=== PATIENT | female | born 1995 | race Caucasian/White ===

== ENCOUNTER 2020-01-23 11:32 | Emergency (ER) | payer SELFPAY ==
[~2020-01-23] VITALS: Ht 154.9 cm; Wt 71.2 kg
[2020-01-23 11:36] VITALS: BP 132/69
[2020-01-23] MEDS ORDERED: ACETAMINOPHEN 325 MG TAB PO ONE (12:20)
[2020-01-23] MEDS ORDERED: IBUPROFEN 600 MG TAB PO ONE (12:20)
[2020-01-23 12:58] LABS: BASOPHILS # (AUTO) 0.1 K/uL (0.00-0.22); BASOPHILS % (AUTO) 0.5 % (0.0-2.0); EOSINOPHILS # (AUTO) 0.1 K/uL (0-0.4); EOSINOPHILS % (AUTO) 0.9 % (0.0-4.0); HEMATOCRIT 34.8 % (36-48); HEMOGLOBIN 11.7 g/dL (12.0-16.0); LYMPHOCYTES % (AUTO) 18.7 % (20.5-51.1); MEAN CORPUSCULAR HEMOGLOBIN 28 pg (27-31); MEAN CORPUSCULAR HGB CONC 34 g/dL (33-37); MEAN CORPUSCULAR VOLUME 84.3 fL (80-94); MONOCYTES # (AUTO) 0.6 K/uL (0.8-1.0); MONOCYTES % (AUTO) 5.6 % (1.7-9.3); NEUTROPHILS # (AUTO) 8.1 K/uL (1.8-7.7); NEUTROPHILS % (AUTO) 74.3 % (42.2-75.2); PLATELET COUNT (AUTO) 292 K/uL (140-450); RED BLOOD CELL COUNT(AUTO) 4.13 MIL/uL (4.20-5.40); RED CELL DISTRIBUTION WIDTH 13.4 % (11.6-13.7); WHITE BLOOD COUNT (AUTO) 10.9 K/uL (4.8-10.8)
[2020-01-23 13:23] LABS: ALBUMIN 3.3 g/dL (3.4-5.0); ANION GAP 14.4 (8-16); CARBON DIOXIDE 25.5 mmol/L (21-32); CREATININE 0.8 mg/dL (0.6-1.3); POTASSIUM 3.9 mmol/L (3.5-5.1); TOTAL BILIRUBIN 0.4 mg/dL (0.0-1.0)
[2020-01-23 13:25] LABS: PROTHROMBIN TIME 9.8 secs (10.8-13.4)
[2020-01-23 16:07] VITALS: BP 99/66
[2020-01-23 16:15] LABS: APPEARANCE,URINE HAZY (CLEAR); BILIRUBIN,URINE NEGATIVE (NEGATIVE); BLOOD, URINE 3+ (NEGATIVE); COLOR,URINE YELLOW (YELLOW); LEUKOCYTE ESTERASE ,URINE 1+ (NEGATIVE); NITRITE, URINE NEGATIVE (NEGATIVE); PH,URINE 7.5 (5.0-9.0); UGLUCOSE NEGATIVE (NEGATIVE)
== END 2020-01-23 16:09 | disposition home or self-care (01) ==
LOC: MED 11:32
DX: N94.6 Dysmenorrhea, unspecified (principal)
CPT/HCPCS: 36415; 76830; 80053; 81001; 81025; 85025; 85610; 85730; 87086; 93976; 99284; Q0092

== ENCOUNTER 2022-11-09 01:45 | Emergency (ER) | payer OTHER ==
[~2022-11-09] VITALS: Ht 154.9 cm; Wt 70.8 kg
[2022-11-09 01:45] VITALS: BP 141/97
--- NOTE | 2022-11-09 01:45 | NUR ---
TO [facility] , VINITA BARBOZA PS FOR PREBOOK
--- NOTE | 2022-11-09 02:09 | NUR ---
PATIENT BIB [facility] [employer]. PATIENT EXAMINED BY . PATIENT MEDICALLY CLEARED AND RELEASED IN CUSTODY IN STABLE CONDITION. ORIGINAL PRE-BOOK FORM GIVEN TO OFFICER EMILY, #[id number].
== END 2022-11-09 02:09 | disposition home or self-care (01) ==
LOC: MED 01:45
DX: Z04.1 Encounter for examination and observation following transport accident (principal); J45.909 Unspecified asthma, uncomplicated; Z02.89 Encounter for other administrative examinations
CPT/HCPCS: 99283

== ENCOUNTER 2023-11-20 18:35 | Emergency (ER) | payer MEDICAID, OTHER ==
[~2023-11-20] VITALS: Ht 157.5 cm; Wt 74.4 kg
[2023-11-20 18:47] VITALS: BP 116/74; PULSE 92; RESP 16; TEMP 98; O2SAT 100
[2023-11-20 19:34] LABS: BASOPHILS # (AUTO) 0.1 K/uL (0.00-0.22); BASOPHILS % (AUTO) 0.7 % (0.0-2.0); EOSINOPHILS # (AUTO) 0.2 K/uL (0-0.4); EOSINOPHILS % (AUTO) 2.4 % (0.0-4.0); HEMATOCRIT 37.9 % (36-48); HEMOGLOBIN 12.8 g/dL (12.0-16.0); LYMPHOCYTES # (AUTO) 2.4 K/uL (2.5-16.5); LYMPHOCYTES % (AUTO) 25.1 % (20.5-51.1); MEAN CORPUSCULAR HEMOGLOBIN 28 pg (27-31); MEAN CORPUSCULAR HGB CONC 34 g/dL (33-37); MONOCYTES # (AUTO) 0.6 K/uL (0.8-1.0); MONOCYTES % (AUTO) 6.5 % (1.7-9.3); NEUTROPHILS # (AUTO) 6.2 K/uL (1.8-7.7); NEUTROPHILS % (AUTO) 65.3 % (42.2-75.2); PLATELET COUNT (AUTO) 332 K/uL (140-450); RED BLOOD CELL COUNT(AUTO) 4.63 MIL/uL (4.20-5.40); RED CELL DISTRIBUTION WIDTH 15.1 % (11.6-13.7); WHITE BLOOD COUNT (AUTO) 9.4 K/uL (4.8-10.8)
[2023-11-20] MEDS: KETOROLAC 30 MG/ML VIAL IVP ONE (20:15)
[2023-11-20] MEDS: ONDANSETRON 4 MG/2 ML VIAL IVP ONE (20:15)
[2023-11-20 20:43] LABS: ANION GAP 14.4 (8-16); CALCIUM 9.1 mg/dL (8.5-10.1); CARBON DIOXIDE 27.9 mmol/L (21-32); CREATININE 0.9 mg/dL (0.6-1.3); POTASSIUM 4.3 mmol/L (3.5-5.1); TOTAL BILIRUBIN 0.2 mg/dL (0.0-1.0)
[2023-11-20 20:44] LABS: ALBUMIN 3.5 g/dL (3.4-5.0); TOTAL PROTEIN, SERUM 8.7 g/dL (6.4-8.2)
[2023-11-20] MEDS: NACL 0.9% 1,000 ML IV ONE (21:11)
[2023-11-20] MEDS ORDERED: ACET-10509 PO (21:45)
[2023-11-20] MEDS ORDERED: IBUP-2213 PO (21:45)
[2023-11-20] MEDS ORDERED: LID5T TP (21:45)
[2023-11-20] MEDS: METOCLOPRAMIDE 10 MG/2 ML INJ VIAL IVP ONE (21:48)
[2023-11-20 22:30] VITALS: BP 119/74; PULSE 79; RESP 16; TEMP 98; O2SAT 100
== END 2023-11-20 22:30 | disposition home or self-care (01) ==
LOC: MED 18:35
DX: R10.11 Right upper quadrant pain (principal); M54.6 Pain in thoracic spine; J45.909 Unspecified asthma, uncomplicated; Z79.899 Other long term (current) drug therapy; Z79.1 Long term (current) use of non-steroidal anti-inflammatories (NSAID)
CPT/HCPCS: 36415; 71046; 76705; 80053; 81002; 81025; 83690; 85025; 96361; 96374; 96375; 99285; J1885; J2405; J2765; J7030; Q0092

== ENCOUNTER 2024-01-09 18:39 | Inpatient (IN) | payer MEDICAID ==
[~2024-01-09] VITALS: Ht 157.5 cm; Wt 79.4 kg
[~2024-01-09 18:39] MED LIST: ACET-10509 PO; IBUP-2213 PO; LID5T TP
[2024-01-09 19:09] VITALS: BP 110/76; PULSE 104; RESP 23; TEMP 98.2; O2SAT 99
[2024-01-09] MEDS ORDERED: IPRATROPIUM 0.02% 0.5 MG/2.5 ML NEBU INH ONE (19:24)
[2024-01-09] MEDS ORDERED: ALBUTEROL 0.083% 2.5 MG/3 ML NEBU INH ONE (19:24)
[2024-01-09] MEDS: ALBUTEROL 0.083% 2.5 MG/3 ML NEBU INH ONE ×2 (19:32→20:48)
[2024-01-09] MEDS: IPRATROPIUM 0.02% 0.5 MG/2.5 ML NEBU INH ONE ×2 (19:32→20:48)
[2024-01-09 19:33] VITALS: PULSE 95; PULSE 97; RESP 24; O2SAT 100; O2SAT 95
[2024-01-09] MEDS: NACL 0.9% 1,000 ML IV ONE (19:40)
[2024-01-09] MEDS: methylPREDNISolone SS 125 MG/2 ML VIAL IVP ONE (19:58)
[2024-01-09] MEDS: MAG SULF 2000 MG/WATER PREMIX 50 ML IV ONE (20:00)
[2024-01-09 20:04] VITALS: O2SAT 98
[2024-01-09 20:18] LABS: BASOPHILS # (AUTO) 0.1 K/uL (0.00-0.22); BASOPHILS % (AUTO) 0.8 % (0.0-2.0); EOSINOPHILS # (AUTO) 0.6 K/uL (0-0.4); EOSINOPHILS % (AUTO) 8.5 % (0.0-4.0); HEMATOCRIT 36.4 % (36-48); HEMOGLOBIN 13.2 g/dL (12.0-16.0); LYMPHOCYTES # (AUTO) 2.2 K/uL (2.5-16.5); LYMPHOCYTES % (AUTO) 32.2 % (20.5-51.1); MEAN CORPUSCULAR HEMOGLOBIN 32 pg (27-31); MEAN CORPUSCULAR HGB CONC 36 g/dL (33-37); MEAN CORPUSCULAR VOLUME 88.2 fL (80-94); MONOCYTES # (AUTO) 0.6 K/uL (0.8-1.0); MONOCYTES % (AUTO) 9.2 % (1.7-9.3); NEUTROPHILS # (AUTO) 3.4 K/uL (1.8-7.7); NEUTROPHILS % (AUTO) 49.3 % (42.2-75.2); PLATELET COUNT (AUTO) 369 K/uL (140-450); RED BLOOD CELL COUNT(AUTO) 4.12 MIL/uL (4.20-5.40); RED CELL DISTRIBUTION WIDTH 14.9 % (11.6-13.7); WHITE BLOOD COUNT (AUTO) 6.9 K/uL (4.8-10.8)
[2024-01-09 20:32] LABS: ANION GAP 16.8 (8-16); CALCIUM 9.3 mg/dL (8.5-10.1); CARBON DIOXIDE 22.9 mmol/L (21-32); CREATININE 0.9 mg/dL (0.6-1.3); POTASSIUM 3.7 mmol/L (3.5-5.1)
[2024-01-09 20:42] LABS: ALANINE AMINOTRANSFERASE 25 U/L (12-78); ALBUMIN 3.9 g/dL (3.4-5.0); ALKALINE PHOSPHATASE 72 U/L (50-136); ASPARTATE AMINOTRANSFERASE 22 U/L (15-37); BILIRUBIN,DIRECT 0.1 mg/dL (0.0-0.3); TOTAL BILIRUBIN 0.3 mg/dL (0.0-1.0); TOTAL PROTEIN, SERUM 8.3 g/dL (6.4-8.2)
[2024-01-09 20:48] VITALS: PULSE 118; RESP 24; O2SAT 95
[2024-01-09 21:56] LABS: FLU A ANTIGEN negative (NEGATIVE); FLU B ANTIGEN NEGATIVE (NEGATIVE)
[2024-01-09] MEDS ORDERED: LORazepam 1 MG TAB PO SCH (23:00)
[2024-01-09 23:34] VITALS: O2SAT 100
[2024-01-10] VITALS (13 sets, daily range): BP systolic 116–122; BP diastolic 64–81; PULSE 85–114; RESP 16–20; TEMP 97.7–98.2; O2SAT 95–100
[2024-01-10] MEDS: ACETAMINOPHEN EXTRA STRENGTH 500 MG TAB PO ONE (01:43)
[2024-01-10] MEDS: ZOLPIDEM 5 MG TAB PO PRN (04:29)
[2024-01-10] MEDS: MORPHINE SULFATE 4 MG/ML SYR IVP PRN (04:32)
[2024-01-10] MEDS: methylPREDNISolone SS 40 MG in WATER STERILE 1 ML IV SCH (05:20)
[2024-01-10] MEDS ORDERED: WATER STERILE 10 ML MC ONE (05:40)
[2024-01-10] MEDS ORDERED: methylPREDNISolone SS 40 MG/ML VIAL ONE (05:40)
[2024-01-10 07:46] LABS: HEMATOCRIT 34.4 % (36-48); HEMOGLOBIN 11.9 g/dL (12.0-16.0); LYMPHOCYTES # (AUTO) 0.9 K/uL (2.5-16.5); LYMPHOCYTES % (AUTO) 11.8 % (20.5-51.1); MEAN CORPUSCULAR HEMOGLOBIN 30 pg (27-31); MEAN CORPUSCULAR HGB CONC 35 g/dL (33-37); MEAN CORPUSCULAR VOLUME 86.4 fL (80-94); MONOCYTES # (AUTO) 0.1 K/uL (0.8-1.0); MONOCYTES % (AUTO) 1.4 % (1.7-9.3); NEUTROPHILS # (AUTO) 6.5 K/uL (1.8-7.7); NEUTROPHILS % (AUTO) 86.8 % (42.2-75.2); PLATELET COUNT (AUTO) 314 K/uL (140-450); RED BLOOD CELL COUNT(AUTO) 3.98 MIL/uL (4.20-5.40); RED CELL DISTRIBUTION WIDTH 14.9 % (11.6-13.7); WHITE BLOOD COUNT (AUTO) 7.6 K/uL (4.8-10.8)
[2024-01-10 08:04] LABS: ALBUMIN 3.5 g/dL (3.4-5.0); ANION GAP 12.2 (8-16); CALCIUM 8.8 mg/dL (8.5-10.1); CARBON DIOXIDE 24.2 mmol/L (21-32); CREATININE 0.7 mg/dL (0.6-1.3); POTASSIUM 4.4 mmol/L (3.5-5.1); TOTAL BILIRUBIN 0.2 mg/dL (0.0-1.0); TOTAL PROTEIN, SERUM 7.6 g/dL (6.4-8.2)
[2024-01-10] MEDS: AZITHROMYCIN 500 MG in DEXTROSE 5% 250 ML IV SCH (09:44)
[2024-01-10] MEDS: guaiFENesin 600 MG TABER PO SCH (12:26)
[2024-01-10] MEDS: methylPREDNISolone SS 40 MG/ML VIAL IVP SCH (12:26)
[2024-01-10] MEDS: ALBUTEROL SULFATE/IPRATROPIU 3 ML SOL IH PRN (14:02)
[2024-01-11] VITALS (8 sets, daily range): BP systolic 118–124; BP diastolic 63–85; PULSE 85–97; RESP 18–20; TEMP 97.3–98.6; O2SAT 95–97
[2024-01-11 05:33] LABS: BASOPHILS % (AUTO) 0.1 % (0.0-2.0); HEMATOCRIT 34.8 % (36-48); HEMOGLOBIN 11.8 g/dL (12.0-16.0); LYMPHOCYTES # (AUTO) 1.6 K/uL (2.5-16.5); LYMPHOCYTES % (AUTO) 9.9 % (20.5-51.1); MEAN CORPUSCULAR HEMOGLOBIN 30 pg (27-31); MEAN CORPUSCULAR HGB CONC 34 g/dL (33-37); MEAN CORPUSCULAR VOLUME 87.8 fL (80-94); MONOCYTES # (AUTO) 0.5 K/uL (0.8-1.0); NEUTROPHILS # (AUTO) 14.1 K/uL (1.8-7.7); PLATELET COUNT (AUTO) 368 K/uL (140-450); RED BLOOD CELL COUNT(AUTO) 3.96 MIL/uL (4.20-5.40); RED CELL DISTRIBUTION WIDTH 15.3 % (11.6-13.7); WHITE BLOOD COUNT (AUTO) 16.2 K/uL (4.8-10.8)
[2024-01-11 06:10] LABS: ALBUMIN 3.5 g/dL (3.4-5.0); ANION GAP 13.2 (8-16); CALCIUM 9.1 mg/dL (8.5-10.1); CARBON DIOXIDE 24.8 mmol/L (21-32); CREATININE 0.7 mg/dL (0.6-1.3); TOTAL BILIRUBIN 0.3 mg/dL (0.0-1.0); TOTAL PROTEIN, SERUM 7.7 g/dL (6.4-8.2)
[2024-01-11] MEDS: PANTOPRAZOLE 40 MG INJ VIAL IVP SCH (08:46)
[2024-01-11] MEDS ORDERED: PRED20TA5 PO (10:05)
[2024-01-11] MEDS ORDERED: ALBU117P INH (10:05)
[2024-01-11] MEDS ORDERED: AMOX1TAB7 PO (10:05)
== END 2024-01-11 13:35 | disposition home or self-care (01) | DRG 138 ==
LOC: MED 18:39 → MTU 22:20
PROVIDERS: ADMIT Student in an Organized Health Care Education/Training Program; ATTEND Student in an Organized Health Care Education/Training Program
DX: J21.9 Acute bronchiolitis, unspecified (principal); J96.01 Acute respiratory failure with hypoxia; J15.69 Pneumonia due to other Gram-negative bacteria; J45.901 Unspecified asthma with (acute) exacerbation; R65.10 Systemic inflammatory response syndrome (SIRS) of non-infectious origin without acute organ dysfunction; Z20.822 Contact with and (suspected) exposure to COVID-19; Z79.899 Other long term (current) drug therapy
CPT/HCPCS: 36415; 71045; 71275; 80048; 80053; 80076; 83880; 84484; 85025; 85379; 87081; 93005; 94010; 94060; 94640; 94664; 96361; 96374; 96375; 99291; C9113; J0456; J1644; J2270; J2920; J2930; J3475; J7060; J7613; J7644; Q9967

== ENCOUNTER 2024-01-14 11:26 | Emergency (ER) | payer MEDICAID ==
[~2024-01-14] VITALS: Ht 157.5 cm; Wt 73.5 kg
[~2024-01-14 11:26] MED LIST changes: -ACET-10509 PO; +ALBU117P INH; +AMOX1TAB7 PO; -IBUP-2213 PO; -LID5T TP; +PRED20TA5 PO
[2024-01-14 11:31] VITALS: BP 135/88; PULSE 122; RESP 20; TEMP 97.5; O2SAT 97
[2024-01-14] MEDS: ALBUTEROL SULFATE/IPRATROPIU 3 ML SOL IH ONE ×2 (11:42→13:09)
[2024-01-14 11:45] VITALS: TEMP 97.6
[2024-01-14 12:30] LABS: BASOPHILS % (AUTO) 0.3 % (0.0-2.0); EOSINOPHILS # (AUTO) 1.3 K/uL (0-0.4); EOSINOPHILS % (AUTO) 8.3 % (0.0-4.0); HEMATOCRIT 39.8 % (36-48); HEMOGLOBIN 13.4 g/dL (12.0-16.0); LYMPHOCYTES # (AUTO) 2.1 K/uL (2.5-16.5); LYMPHOCYTES % (AUTO) 13.9 % (20.5-51.1); MEAN CORPUSCULAR HEMOGLOBIN 27 pg (27-31); MEAN CORPUSCULAR HGB CONC 34 g/dL (33-37); MEAN CORPUSCULAR VOLUME 80.9 fL (80-94); MONOCYTES # (AUTO) 0.4 K/uL (0.8-1.0); MONOCYTES % (AUTO) 2.9 % (1.7-9.3); NEUTROPHILS # (AUTO) 11.4 K/uL (1.8-7.7); NEUTROPHILS % (AUTO) 74.6 % (42.2-75.2); PLATELET COUNT (AUTO) 423 K/uL (140-450); RED BLOOD CELL COUNT(AUTO) 4.91 MIL/uL (4.20-5.40); RED CELL DISTRIBUTION WIDTH 15.2 % (11.6-13.7); WHITE BLOOD COUNT (AUTO) 15.3 K/uL (4.8-10.8)
[2024-01-14 12:46] LABS: ANION GAP 14.3 (8-16); CALCIUM 8.9 mg/dL (8.5-10.1); CARBON DIOXIDE 24.8 mmol/L (21-32); CREATININE 0.8 mg/dL (0.6-1.3); POTASSIUM 4.1 mmol/L (3.5-5.1)
[2024-01-14 13:10] VITALS: PULSE 89; RESP 17; O2SAT 93
[2024-01-14] MEDS ORDERED: ALBU0.0912 INH (13:42)
[2024-01-14 14:04] VITALS: BP 127/89; PULSE 109; RESP 17; O2SAT 96
== END 2024-01-14 14:04 | disposition home or self-care (01) ==
LOC: MED 11:26
DX: J45.901 Unspecified asthma with (acute) exacerbation (principal); Z79.899 Other long term (current) drug therapy
CPT/HCPCS: 36415; 71045; 80048; 81025; 85025; 94640; 99284

== ENCOUNTER 2024-01-16 08:40 | Inpatient (IN) | payer MEDICAID ==
[2024-01-16] VITALS (11 sets, daily range): BP systolic 108; BP diastolic 65–85; PULSE 99–128; RESP 16–24; TEMP 97.1–98.2; O2SAT 94–97
[~2024-01-16] VITALS: Ht 157.5 cm; Wt 73.5 kg
[~2024-01-16 08:40] MED LIST changes: +ALBU0.0912 INH
[2024-01-16] MEDS: IPRATROPIUM 0.02% 0.5 MG/2.5 ML NEBU INH ONE (09:01)
[2024-01-16] MEDS: ALBUTEROL 0.083% 2.5 MG/3 ML NEBU INH ONE (09:01)
[2024-01-16 09:08] LABS: BASOPHILS # (AUTO) 0.1 K/uL (0.00-0.22); BASOPHILS % (AUTO) 0.6 % (0.0-2.0); EOSINOPHILS # (AUTO) 1.9 K/uL (0-0.4); EOSINOPHILS % (AUTO) 11.2 % (0.0-4.0); HEMATOCRIT 40.1 % (36-48); HEMOGLOBIN 13.5 g/dL (12.0-16.0); LYMPHOCYTES # (AUTO) 3.2 K/uL (2.5-16.5); LYMPHOCYTES % (AUTO) 19.4 % (20.5-51.1); MEAN CORPUSCULAR HEMOGLOBIN 27 pg (27-31); MEAN CORPUSCULAR HGB CONC 34 g/dL (33-37); MEAN CORPUSCULAR VOLUME 80.9 fL (80-94); MONOCYTES # (AUTO) 0.9 K/uL (0.8-1.0); MONOCYTES % (AUTO) 5.6 % (1.7-9.3); NEUTROPHILS # (AUTO) 10.5 K/uL (1.8-7.7); NEUTROPHILS % (AUTO) 63.2 % (42.2-75.2); PLATELET COUNT (AUTO) 456 K/uL (140-450); RED BLOOD CELL COUNT(AUTO) 4.96 MIL/uL (4.20-5.40); RED CELL DISTRIBUTION WIDTH 14.8 % (11.6-13.7); WHITE BLOOD COUNT (AUTO) 16.6 K/uL (4.8-10.8)
[2024-01-16 09:20] LABS: CREATININE 0.8 mg/dL (0.6-1.3)
[2024-01-16] MEDS: MAG SULF 2000 MG/WATER PREMIX 50 ML IV ONE (09:33)
[2024-01-16] MEDS: methylPREDNISolone SS 125 MG/2 ML VIAL IVP ONE (09:45)
[2024-01-16] MEDS ORDERED: methylPREDNISolone SS 40 MG in WATER STERILE 1 ML IV SCH (12:00)
[2024-01-16] MEDS ORDERED: AZITHROMYCIN 500 MG INJ VIAL IV ONE (12:20)
[2024-01-16] MEDS: methylPREDNISolone SS 40 MG/ML VIAL IVP SCH (12:26)
[2024-01-16] MEDS: AZITHROMYCIN 500 MG in DEXTROSE 5% 250 ML IV SCH (12:26)
[2024-01-16] MEDS: NACL 0.9% 1,000 ML IV ONE (12:27)
[2024-01-16] MEDS: ALBUTEROL SULFATE/IPRATROPIU 3 ML SOL IH SCH (12:47)
[2024-01-16] MEDS ORDERED: cefTRIAXone 1,000 MG VIAL ONE (14:24)
[2024-01-17] VITALS (14 sets, daily range): BP systolic 91–116; BP diastolic 58–76; PULSE 80–118; RESP 15–20; TEMP 97.2–98.2; O2SAT 95–98
[2024-01-17 07:06] LABS: BASOPHILS % (AUTO) 0.1 % (0.0-2.0); HEMATOCRIT 35.6 % (36-48); HEMOGLOBIN 11.8 g/dL (12.0-16.0); LYMPHOCYTES # (AUTO) 1.5 K/uL (2.5-16.5); LYMPHOCYTES % (AUTO) 9.3 % (20.5-51.1); MEAN CORPUSCULAR HEMOGLOBIN 28 pg (27-31); MEAN CORPUSCULAR HGB CONC 33 g/dL (33-37); MEAN CORPUSCULAR VOLUME 85.5 fL (80-94); MONOCYTES # (AUTO) 0.4 K/uL (0.8-1.0); MONOCYTES % (AUTO) 2.4 % (1.7-9.3); NEUTROPHILS # (AUTO) 14.6 K/uL (1.8-7.7); NEUTROPHILS % (AUTO) 88.2 % (42.2-75.2); PLATELET COUNT (AUTO) 389 K/uL (140-450); RED BLOOD CELL COUNT(AUTO) 4.16 MIL/uL (4.20-5.40); WHITE BLOOD COUNT (AUTO) 16.6 K/uL (4.8-10.8)
[2024-01-17 07:24] LABS: ANION GAP 15.3 (8-16); CALCIUM 9.1 mg/dL (8.5-10.1); CARBON DIOXIDE 23.1 mmol/L (21-32); CREATININE 0.7 mg/dL (0.6-1.3); POTASSIUM 4.4 mmol/L (3.5-5.1)
[2024-01-17] MEDS: guaiFENesin 20 MG/ML UDC PO PRN (11:33)
[2024-01-17] MEDS: AZITHROMYCIN 500 MG in DEXTROSE 5% 250 ML IV SCH (11:33)
[2024-01-18] VITALS (7 sets, daily range): PULSE 101–115; RESP 16–20; O2SAT 93–98
[2024-01-18 06:46] LABS: BASOPHILS % (AUTO) 0.1 % (0.0-2.0); HEMATOCRIT 33.5 % (36-48); HEMOGLOBIN 11.2 g/dL (12.0-16.0); LYMPHOCYTES # (AUTO) 1.2 K/uL (2.5-16.5); LYMPHOCYTES % (AUTO) 7.4 % (20.5-51.1); MEAN CORPUSCULAR HEMOGLOBIN 29 pg (27-31); MEAN CORPUSCULAR HGB CONC 33 g/dL (33-37); MEAN CORPUSCULAR VOLUME 87.5 fL (80-94); MONOCYTES # (AUTO) 0.4 K/uL (0.8-1.0); MONOCYTES % (AUTO) 2.5 % (1.7-9.3); NEUTROPHILS # (AUTO) 15.1 K/uL (1.8-7.7); PLATELET COUNT (AUTO) 366 K/uL (140-450); RED BLOOD CELL COUNT(AUTO) 3.83 MIL/uL (4.20-5.40); RED CELL DISTRIBUTION WIDTH 15.3 % (11.6-13.7); WHITE BLOOD COUNT (AUTO) 16.8 K/uL (4.8-10.8)
[2024-01-18 07:18] LABS: ANION GAP 14.3 (8-16); CALCIUM 8.9 mg/dL (8.5-10.1); CARBON DIOXIDE 24.2 mmol/L (21-32); CREATININE 0.7 mg/dL (0.6-1.3); POTASSIUM 4.5 mmol/L (3.5-5.1)
[2024-01-18] MEDS ORDERED: guaiFENesin DM 200/20 MG-10 ML 10 ML UDC PO PRN (13:55)
[2024-01-18 16:52] LABS: FLU A ANTIGEN negative (NEGATIVE); FLU B ANTIGEN NEGATIVE (NEGATIVE)
[2024-01-18] MEDS: ALBUTEROL SULFATE/IPRATROPIU 3 ML SOL IH PRN (20:44)
[2024-01-19 05:37] VITALS: PULSE 17; RESP 20; O2SAT 97
[2024-01-19 07:05] LABS: BASOPHILS % (AUTO) 0.1 % (0.0-2.0); EOSINOPHILS # (AUTO) 0.1 K/uL (0-0.4); EOSINOPHILS % (AUTO) 0.4 % (0.0-4.0); HEMATOCRIT 32.3 % (36-48); HEMOGLOBIN 10.7 g/dL (12.0-16.0); LYMPHOCYTES # (AUTO) 4.1 K/uL (2.5-16.5); LYMPHOCYTES % (AUTO) 33.4 % (20.5-51.1); MEAN CORPUSCULAR HEMOGLOBIN 29 pg (27-31); MEAN CORPUSCULAR HGB CONC 33 g/dL (33-37); MONOCYTES # (AUTO) 0.9 K/uL (0.8-1.0); MONOCYTES % (AUTO) 7.8 % (1.7-9.3); NEUTROPHILS # (AUTO) 7.1 K/uL (1.8-7.7); NEUTROPHILS % (AUTO) 58.3 % (42.2-75.2); PLATELET COUNT (AUTO) 342 K/uL (140-450); RED BLOOD CELL COUNT(AUTO) 3.71 MIL/uL (4.20-5.40); WHITE BLOOD COUNT (AUTO) 12.1 K/uL (4.8-10.8)
[2024-01-19 07:24] LABS: ANION GAP 12.6 (8-16); CALCIUM 8.6 mg/dL (8.5-10.1); CARBON DIOXIDE 27.4 mmol/L (21-32); CREATININE 0.8 mg/dL (0.6-1.3)
[2024-01-19 08:00] VITALS: PULSE 103; RESP 18; O2SAT 94
[2024-01-19 08:30] VITALS: PULSE 99; RESP 16; O2SAT 98
[2024-01-19 08:38] VITALS: BP 106/68; PULSE 94; RESP 18; TEMP 97.8; O2SAT 98
[2024-01-19 08:40] VITALS: PULSE 99; RESP 16; O2SAT 98
[2024-01-19] MEDS: predniSONE 20 MG TAB PO SCH (09:29)
[2024-01-19 11:33] VITALS: BP 104/73; PULSE 100; RESP 18; TEMP 98; O2SAT 93
[2024-01-19] MEDS ORDERED: ALBU117P INH (13:19)
[2024-01-19] MEDS ORDERED: GUAI5LIQ5 PO (13:19)
[2024-01-19] MEDS ORDERED: FLUT1BLS8 IH (13:22)
[2024-01-19] MEDS ORDERED: PRED20TA5 PO (13:22)
[2024-01-19] MEDS ORDERED: LEVO750T75 PO (13:24)
== END 2024-01-19 16:50 | disposition home or self-care (01) | DRG 720 ==
LOC: MED 08:40 → MTU 11:58
PROVIDERS: ADMIT Family Medicine; ATTEND Family Medicine
DX: A41.9 Sepsis, unspecified organism (principal); J96.01 Acute respiratory failure with hypoxia; J18.9 Pneumonia, unspecified organism; J45.901 Unspecified asthma with (acute) exacerbation; Z20.822 Contact with and (suspected) exposure to COVID-19; J20.9 Acute bronchitis, unspecified; Z79.899 Other long term (current) drug therapy
CPT/HCPCS: 36415; 71045; 80048; 83880; 84703; 85025; 87040; 87081; 87420; 94640; 96365; 96366; 96375; 97112; 97116; 97163-GP; 97530; 99291; J0456; J0696; J2920; J2930; J3475; J7060; J7512; J7613; J7644

== ENCOUNTER 2024-05-11 19:02 | Emergency (ER) | payer MEDICAID ==
[~2024-05-11] VITALS: Ht 157.5 cm; Wt 73.2 kg
[~2024-05-11 19:02] MED LIST changes: -ALBU0.0912 INH; -AMOX1TAB7 PO; +FLUT1BLS8 IH; +GUAI5LIQ5 PO; +LEVO750T75 PO
[2024-05-11 19:04] VITALS: BP 119/83; PULSE 81; RESP 16; TEMP 98; O2SAT 97
== END 2024-05-11 20:14 | disposition home or self-care (01) ==
LOC: MED 19:02
DX: M79.645 Pain in left finger(s) (principal); M79.632 Pain in left forearm; J45.909 Unspecified asthma, uncomplicated; Z79.899 Other long term (current) drug therapy
CPT/HCPCS: 73090; 73110; 73130; 99284

== ENCOUNTER 2024-07-03 21:43 | Emergency (ER) | payer MEDICAID ==
[~2024-07-03] VITALS: Ht 157.5 cm; Wt 72.6 kg
[2024-07-03 21:57] VITALS: BP 97/60; PULSE 95; RESP 18; TEMP 98; O2SAT 97
[2024-07-04 01:46] LABS: APPEARANCE,URINE CLEAR (CLEAR); BILIRUBIN,URINE NEGATIVE (NEGATIVE); BLOOD, URINE NEGATIVE (NEGATIVE); COLOR,URINE YELLOW (YELLOW); LEUKOCYTE ESTERASE ,URINE 1+ (NEGATIVE); NITRITE, URINE NEGATIVE (NEGATIVE); PROTEIN,URINE NEGATIVE (NEGATIVE); UGLUCOSE NEGATIVE (NEGATIVE); UROBILINOGEN,URINE 0.2 EU/dL (0.2 - 1)
[2024-07-04 01:52] LABS: BACTERIA,URINE 10-30 (MOD) /HPF (None Seen); RBC,URINE 0-5 /HPF (0-5)
[2024-07-04 01:53] LABS: MUCUS,URINE 1+ /LPF (None Seen); SQUAMOUS EPITHELIAL CELL,UR 4-10 (MOD) /LPF (0-3 (FEW))
== END 2024-07-04 01:58 | disposition left against medical advice (07) ==
LOC: MED 21:43
DX: R10.9 Unspecified abdominal pain (principal); R11.2 Nausea with vomiting, unspecified; Z53.21 Procedure and treatment not carried out due to patient leaving prior to being seen by health care provider
CPT/HCPCS: 81001; 81025; 87086